=== PATIENT | female | born 1960 | race African-American/Black ===

== ENCOUNTER 2018-03-26 13:14 | Emergency (ER) | payer MEDICARE, MEDICAID ==
[~2018-03-26] VITALS: Ht 180.3 cm; Wt 107.0 kg
[~2018-03-26 13:14] MED LIST: AMLODIPINE BES2.5 MG ORAL; AMLODIPINE BESY10 MG ORAL; AMLODIPINE BESYL5 MG ORAL; AUGMENTIN 875-1 EAC1 ORAL; FLEXERIL10 MG PO; IBUPROFEN600 MG ORAL; IBUPROFEN800 M1 PO; NAPROSYN500 M1 PO; NORCO 10-325 T1 EACH PO; OMEGA 3-6-9 CO400 MG PO; PERCOCET 5-3251 EACH ORAL; VITAMIN D1000 UNI1 ORAL
[2018-03-26] MEDS ORDERED: Norco 5mg/325mg tab ORAL ONE (14:15)
--- NOTE | 2018-03-26 14:53 | Emergency Room Report ---
History of Present Illness General Chief Complaint: Upper Extremity Injury Source: Patient Present Illness HPI 57-year-old female presents emergency department complaining of localized pain in the right shoulder with exacerbation upon movement especially raising her right arm. Patient is right-hand dominant. Patient status post mechanical slip and fall this morning and she landed on her right shoulder. Patient denies pain in the elbow wrist and fingers or hand. Patient denies hitting her head she denies loss of consciousness denies midline neck or back pain. Denies numbness tingling or loss of sensation or gross motor movements of the extremities, incontinence of bowel or bladder. Denies CP, Palpitations, LOC, AMS , dizziness, Changes in Vision, weakness or a sudden severe headache. Allergies: Coded Allergies: CIPROFLOXACIN (Verified Allergy, Intermediate, Hives, 08/13/12) CIPROFLOXACIN HCL (Verified Allergy, Intermediate, Hives, 08/13/12) Patient History Past Medical History: see triage record Past Surgical History: none Pertinent Family History: none Last Menstrual Period: na Now: No Immunizations: UTD Reviewed Nursing Documentation: PMH: Agreed; PSxH: Agreed Nursing Documentation-PMH Past Medical History: No History, Except For Hx Hypertension: Yes Hx Cancer: No Hx Gastrointestinal Problems: No Hx Neurological Problems: No Review of Systems All Other Systems: negative except mentioned in HPI Physical Exam Vital Signs Date Time Temp Pulse Resp B/P (MAP) Pulse Ox O2 Delivery O2 Flow Rate FiO2 03/26/18 13:46 98.0 93 18 134/89 95 Room Air 98.1 Sp02 EP Interpretation: reviewed, normal General Appearance: no apparent distress, alert, GCS 15, non-toxic Head: normocephalic, atraumatic Eyes: bilateral eye normal inspection, bilateral eye PERRL ENT: hearing grossly normal, normal voice Neck: full range of motion Respiratory: lungs clear, normal breath sounds, speaking full sentences Cardiovascular #1: regular rate, rhythm, normal capillary refill Cardiovascular #2: 2+ radial (R), 2+ radial (L) Musculoskeletal: back normal, gait/station normal, normal range of motion, tender - ttp anteriorly and laterally to the right shoulder, pain with ROM above 50* point. no clicking, no obvious deformity, no step-off. Neurologic: alert, oriented x3, responsive, motor strength/tone normal, sensory intact, speech normal, grossly normal Psychiatric: judgement/insight normal Skin: normal color, no rash, warm/dry, well hydrated Lymphatic: no adenopathy Medical Decision Making PA Attestation Dr. Jimenez is my supervising Physician whom patient management has been discussed with. Diagnostic Impression: Primary Impression: Sprain of shoulder, right Qualified Codes: S43.401A - Unspecified sprain of right shoulder joint, initial encounter Additional Impressions: Shoulder pain, right Qualified Codes: M25.511 - Pain in right shoulder Rotator cuff injury Qualified Codes: S46.001A - Unspecified injury of muscle(s) and tendon(s) of the rotator cuff of right shoulder, initial encounter ER Course 57-year-old female presents emergency department complaining of localized pain in the right shoulder with exacerbation upon movement especially raising her right arm. Patient is right-hand dominant. Patient status post mechanical slip and fall this morning and she landed on her right shoulder. Patient denies pain in the elbow wrist and fingers or hand. Patient denies hitting her head she denies loss of consciousness denies midline neck or back pain. Denies numbness tingling or loss of sensation or gross motor movements of the extremities, incontinence of bowel or bladder. Denies CP, Palpitations, LOC, AMS , dizziness, Changes in Vision, weakness or a sudden severe headache. Ddx considered but are not limited to Fracture, dislocation, contusion, Sprain/ Strain/Spasm.. Vital signs: are WNL, pt. is afebrile H&PE are most consistent with musculoskeletal injury will perform imaging to r/ o fractures/dislocations. ORDERS: - X-ray right shoulder - negative for fx, Dislocation, or significant soft tissue injury, per preliminary read in ED, and signed by TIMMY Arredondo, my supervising physician has reviewed, and agrees with my interpretation. ED INTERVENTIONS: - [place] PO -- Right arm Sling applied by airdrop systems technician. Pt. remains neurovascularly intact. Cures report shows that this patient regularly receives [place] and just had refill yesterday.- She reports history of bilateral knee replacement. -I do not identify an emergent condition at this time. With current presentation , pt. is stable for close outpatient follow up and conservative treatment. D/ w pt. to return promptly to ED with worsening or new symptoms.- Pt. verbalizes understanding and agreement with proposed treatment plan.proposed treatment plan. DISCHARGE: At this time pt. is stable for d/c to home. Will provide printed patient care instructions, and any necessary prescriptions. Care plan and follow up instructions have been discussed with the patient prior to discharge. Other X-Ray Diagnostic Results Other X-Ray Diagnostic Results : X-Ray ordered: Right Shoulder # of Views/Limited Vs Complete: 3 View Indication: Pain EP Interpretation: Yes PA Xray: Interpretation reviewed, by supervising MD, and agrees with findings. Interpretation: no dislocation, no soft tissue swelling, no fractures Impression: No acute disease Electronically Signed by: Jennifer Arredondo PA-C Last Vital Signs Date Time Temp Pulse Resp B/P (MAP) Pulse Ox O2 Delivery O2 Flow Rate FiO2 03/26/18 13:46 98.0 93 18 134/89 95 Room Air 98.1 Status: improved Disposition: PLACE IN OBSERVATION Condition: Stable Scripts Ibuprofen* (MOTRIN*) 600 Mg Tablet 600 MG ORAL THREE TIMES A DAY, #30 TAB 0 Refills Prov: Jennifer Arredondo 03/26/18 Patient Instructions: Rotator Cuff Injury, Shoulder Sprain Additional Instructions: Take medications as directed. Continue to take previously rx'd pain medications as directed. Follow up with a Primary Care Provider in 3-5 days, even if your symptoms have resolved. Return sooner to ED if new symptoms occur, or current symptoms become worse. - Please note that this Emergency Department Report was dictated using [employer] technology software, occasionally this can lead to erroneous entry secondary to interpretation by the dictation equipment. Jennifer Arredondo Mar 26, 2018 14:52
[2018-03-26] MEDS ORDERED: IBUPROFEN600 MG ORAL (15:22)
--- NOTE | 2018-03-26 15:23 | Diagnostic Imaging Report ---
Indication: Shoulder pain Technique: 3 views of the left shoulder Comparison: None Findings: No acute fractures or dislocations. Joint spaces are preserved. Impression: Negative
[2018-03-26 15:35] VITALS: BP 134/89
[2018-03-26 16:41] VITALS: BP 134/89
== END 2018-03-26 17:00 | disposition home or self-care (01) ==
LOC: EMR 14:00
DX: S43.401A Unspecified sprain of right shoulder joint, initial encounter (principal); M25.511 Pain in right shoulder; S46.001A Unspecified injury of muscle(s) and tendon(s) of the rotator cuff of right shoulder, initial encounter; W01.0XXA Fall on same level from slipping, tripping and stumbling without subsequent striking against object, initial encounter; Y93.9 Activity, unspecified; Y92.9 Unspecified place or not applicable; Z88.8 Allergy status to other drugs, medicaments and biological substances; I10 Essential (primary) hypertension
CPT/HCPCS: 99285

== ENCOUNTER 2019-01-07 22:52 | Emergency (ER) | payer MEDICARE, MEDICAID ==
[~2019-01-07] VITALS: Ht 172.7 cm; Wt 81.6 kg
[2019-01-07 23:07] VITALS: BP 155/98
--- NOTE | 2019-01-07 23:17 | NUR ---
ED Nurse Note: Patient walked into ED c/o rigt face pain that started about 1 week ago, states that she ate ranch last week and has been experiencing pain ever since, denies any SOB, denies any vision changes. patient is alert and oriented x4, ambulatory with a steady gait, VSS
[2019-01-07] MEDS ORDERED: PREDNISONE20 MG ORAL (23:57)
[2019-01-07] MEDS ORDERED: IBUPROFEN600 MG ORAL (23:57)
[2019-01-07] MEDS ORDERED: DEBROX15 M1 RIGHT EAR (23:57)
[2019-01-08 00:05] VITALS: BP 148/82
--- NOTE | 2019-01-08 00:05 | NUR ---
ER DISCHARGE NOTE: Patient is cleared to be discharged per ERMD, pt is aox4, on room air, with stable vital signs. pt was given dc and prescription instructions, pt was able to verbalize understanding, pt id band removed without complications. pt is able to ambulate with steady gait. pt took all belongings.
--- NOTE | 2019-01-08 02:04 | Emergency Room Report ---
History of Present Illness General Chief Complaint: Headache Source: Patient Present Illness HPI 58-year-old female presents ED for evaluation. Patient complaining of right- sided facial pain and right-sided ear pain x3 days. States that she has a "sinus infection". Pain is dull, 6 out of 10, nonradiating. Denies cough. Denies fevers or chills. denies sick contacts or recent travel. No other aggravating or relieving factors. Denies any other associated symptoms Allergies: Coded Allergies: CIPROFLOXACIN (Verified Allergy, Intermediate, Hives, 08/13/12) CIPROFLOXACIN HCL (Verified Allergy, Intermediate, Hives, 08/13/12) Patient History Past Medical History: HTN Past Surgical History: none Pertinent Family History: none Social History: Denies: smoking, alcohol use, drug use Last Menstrual Period: n/a Now: No Immunizations: UTD Reviewed Nursing Documentation: PMH: Agreed; PSxH: Agreed Nursing Documentation-PMH Past Medical History: No History, Except For Hx Hypertension: Yes Hx Cancer: No Hx Gastrointestinal Problems: No Hx Neurological Problems: No Review of Systems All Other Systems: negative except mentioned in HPI Physical Exam Vital Signs Date Time Temp Pulse Resp B/P (MAP) Pulse Ox O2 Delivery O2 Flow Rate FiO2 01/07/19 23:05 98.2 73 18 155/98 (117) 100 Room Air Sp02 EP Interpretation: reviewed, normal General Appearance: no apparent distress, alert, GCS 15, non-toxic Head: normocephalic, atraumatic Eyes: bilateral eye normal inspection, bilateral eye PERRL ENT: hearing grossly normal, normal pharynx, no angioedema, normal voice, other - R TM cerumen impaction Neck: full range of motion, supple, no meningismus, supple/symm/no masses Respiratory: chest non-tender, lungs clear, normal breath sounds, speaking full sentences Cardiovascular #1: regular rate, rhythm, no edema Cardiovascular #2: 2+ carotid (R), 2+ carotid (L), 2+ radial (R), 2+ radial (L) , 2+ dorsalis pedis (R), 2+ dorsalis pedis (L) Gastrointestinal: normal bowel sounds, non tender, soft, non-distended, no guarding, no rebound Rectal: deferred Genitourinary: normal inspection, no CVA tenderness Musculoskeletal: back normal, gait/station normal, normal range of motion, non- tender Neurologic: alert, oriented x3, responsive, motor strength/tone normal, sensory intact, speech normal Psychiatric: judgement/insight normal, memory normal, mood/affect normal, no suicidal/homicidal ideation Reflexes: 3+ bicep (R), 3+ bicep (L), 3+ tricep (R), 3+ tricep (L), 3+ knee (R) , 3+ knee (L) Lymphatic: no adenopathy Medical Decision Making Diagnostic Impression: Primary Impression: Sinusitis, acute Qualified Codes: J01.10 - Acute frontal sinusitis, unspecified ER Course Hospital Course 58 yo F presents with R ear pain, sinus pain. Differential diagnoses include: URI, pharyngitis, otitis media, asthma Clinical course Patient placed on stretcher. After initial history, physical exam reveals a milddle aged female in no acute distress. R TM with cerumen impaction. No pharyngeal erythema. No tonsillar exudates. No lymphadenopathy. lungs clear. abdomen soft. Clinical findings consistent with sinusitits. Findings with patient. Afebrile. Likely viral. Will discharge with pain medications, prednisone, debrox. Safe for discharge for close outpatient follow-up. States she has a PMD Diagnosis - sinusitits Stable and discharged home with prescriptions for Prednisone, debrox. Instructed to followup with PMD. Return to ED if symptoms recur or worsen Last Vital Signs Date Time Temp Pulse Resp B/P (MAP) Pulse Ox O2 Delivery O2 Flow Rate FiO2 01/08/19 00:05 98.2 76 18 148/82 100 Room Air Status: improved Disposition: HOME, SELF-CARE Condition: Stable Scripts Ibuprofen* (MOTRIN*) 600 Mg Tablet 600 MG ORAL Q8H PRN for For Pain, #30 TAB 0 Refills Prov: Jus Herbert MD 01/07/19 Carbamide Peroxide (DEBROX) 15 Ml Drops 5 DROP RIGHT EAR TWICE A DAY for 4 Days, ML 0 Refills Prov: Jus Herbert MD 01/07/19 Prednisone* (PREDNISONE*) 20 Mg Tablet 40 MG ORAL DAILY, #10 TAB Prov: Jus Herbert MD 01/07/19 Referrals: [facility]. [facility] Patient Instructions: Sinus Headache Jus Herbert MD 16, 2019 02:04
== END 2019-01-08 00:06 | disposition home or self-care (01) ==
LOC: EMR 23:30
DX: J01.10 Acute frontal sinusitis, unspecified (principal); H61.21 Impacted cerumen, right ear; Z88.8 Allergy status to other drugs, medicaments and biological substances; I10 Essential (primary) hypertension
CPT/HCPCS: 99282

== ENCOUNTER 2020-03-20 22:11 | Emergency (ER) | payer MEDICARE, MEDICAID ==
[~2020-03-20] VITALS: Ht 180.3 cm; Wt 113.4 kg
[~2020-03-20 22:11] MED LIST changes: +DEBROX15 M1 RIGHT EAR; +PREDNISONE20 MG ORAL
[2020-03-20 22:15] VITALS: BP 169/81
--- NOTE | 2020-03-20 22:41 | Emergency Room Report ---
History of Present Illness General Chief Complaint: Headache Source: Patient Present Illness [facility] This a 59-year-old female with a history of hypertension. She presents with chief complaint of headache. This been ongoing for about a month. Pain is to the back of her head. Throbbing in nature. Worse when she take dairy product. No fever chills but no nausea no vomiting. Pain is 7 out of 10. No focal def icit. Has not anything for it. Nothing made it better. Dairy product made it worse. Allergies: Coded Allergies: CIPROFLOXACIN (Verified Allergy, Intermediate, Hives, 08/13/12) COVID-19 Screening Contact w/high risk pt: No Experienced COVID-19 symptoms?: No COVID-19 Testing performed LOADING MANAGER: No Patient History Past Medical History: see triage record, old chart reviewed Past Surgical History: none Pertinent Family History: none Social History: Denies: smoking Now: No Immunizations: other Reviewed Nursing Documentation: PMH: Agreed; PSxH: Agreed Nursing Documentation-PMH Hx Hypertension: Yes Hx Cancer: No Hx Gastrointestinal Problems: No Hx Neurological Problems: No Review of Systems Eye: Denies: eye pain, blurred vision ENT: Denies: ear pain, nose congestion, throat swelling Respiratory: Denies: cough, shortness of breath Cardiovascular: Denies: chest pain, palpitations Gastrointestinal: Denies: abdominal pain, diarrhea, nausea, vomiting Musculoskeletal: Denies: back pain, joint pain Skin: Denies: rash Neurological: Reports: headache; Denies: numbness Endocrine: Denies: increased thirst, increased urine Hematologic/Lymphatic: Denies: easy bruising All Other Systems: negative except mentioned in HPI Physical Exam Vital Signs Date Time Temp Pulse Resp B/P (MAP) Pulse Ox O2 Delivery O2 Flow Rate FiO2 03/20/20 22:15 98.4 92 16 169/81 (110) 97 Room Air Vitals with high blood pressure Sp02 EP Interpretation: reviewed, normal General Appearance: well appearing, no apparent distress, alert Head: normocephalic, atraumatic Eyes: bilateral eye PERRL, bilateral eye EOMI ENT: hearing grossly normal, normal pharynx Neck: full range of motion, supple, no meningismus Respiratory: chest non-tender, lungs clear, normal breath sounds Cardiovascular #1: regular rate, rhythm, no murmur Gastrointestinal: normal bowel sounds, non tender, no mass, no organomegaly, no bruit, non-distended Musculoskeletal: back normal, normal range of motion, gait/station normal Psychiatric: mood/affect normal Medical Decision Making Diagnostic Impression: Primary Impression: Headache Qualified Codes: G44.209 - Tension-type headache, unspecified, not intractable Additional Impression: Hypertension Qualified Codes: I10 - Essential (primary) hypertension ER Course Presents with headache. No evidence of bleed, meningitis, or neoplastic process. Suspect is secondary to her blood pressure being elevated. She is only taking her Norvasc regularly. She is taking Cozaar once in a while. She did take it today. She said her headache is better after she takes her Cozaar. CT/MRI/US Diagnostic Results CT/MRI/US Diagnostic Results : Imaging Test Ordered: CT head Impression Negative per radiologist Last Vital Signs Date Time Temp Pulse Resp B/P (MAP) Pulse Ox O2 Delivery O2 Flow Rate FiO2 03/20/20 22:15 98.4 92 16 169/81 (110) 97 Room Air Status: improved Disposition: HOME, SELF-CARE Condition: Stable Scripts Acetaminophen With Codeine (T#3) (TYLENOL #3 TAB*) Y Tab 1 TAB ORAL Q8H PRN for For Pain, #20 TAB Prov: Kelechi Wood MD 03/20/20 Referrals: NON PHYSICIAN (PCP) Patient Instructions: Tension Headache Additional Instructions: Take both of your blood pressure medication. Check your blood pressure at home regularly. Follow-up with your doctor in 7 days. Return if worse. Kelechi Wood MD Mar 20, 2020 22:41
[2020-03-20] MEDS ORDERED: ACETAMINOPHEN-1 EAC1 ORAL (23:28)
--- NOTE | 2020-03-20 23:47 | Diagnostic Imaging Report ---
EXAM: CT Head Without Intravenous Contrast CLINICAL HISTORY: PAIN TECHNIQUE: Axial computed tomography images of the head/brain without intravenous contrast. CTDI is 53.4 mGy and DLP is 998.2 mGy-cm. One or more of the following dose reduction techniques were used: automated exposure control, adjustment of the mA and/or kV according to patient size, use of iterative reconstruction technique. COMPARISON: No relevant prior studies available. FINDINGS: Brain: No hemorrhage or mass effect. Thick calcifications along the anterior falx. Nonspecific. Ventricles: No hydrocephalus. Bones/joints: Unremarkable. Soft tissues: Unremarkable. Sinuses: Unremarkable. Mastoid air cells: Clear. IMPRESSION: No acute hemorrhage, hydrocephalus, or mass effect.
[2020-03-20 23:52] VITALS: BP 169/81
== END 2020-03-20 23:52 | disposition home or self-care (01) ==
LOC: EMR 22:38
DX: G44.209 Tension-type headache, unspecified, not intractable (principal); I10 Essential (primary) hypertension; Z88.1 Allergy status to other antibiotic agents
CPT/HCPCS: 70450; 99284

== ENCOUNTER 2020-07-05 12:58 | Emergency (ER) | payer MEDICARE, MEDICAID ==
[~2020-07-05] VITALS: Ht 180.3 cm; Wt 111.1 kg
[~2020-07-05 12:58] MED LIST changes: +ACETAMINOPHEN-1 EAC1 ORAL
--- NOTE | 2020-07-05 13:00 | NUR ---
came to er complaints of left foot and ankle pain s/p fall denies any loc
[2020-07-05 13:15] VITALS: BP 157/90
--- NOTE | 2020-07-05 13:30 | NUR ---
x-rays completed pain meds given
[2020-07-05] MEDS ORDERED: HYDROcodone/Acetamin 5/325 tab ORAL ONE (13:45)
--- NOTE | 2020-07-05 14:31 | Diagnostic Imaging Report ---
FILM LEFT FOOT LEFT FOOT, 3 views INDICATION: Left foot pain COMPARISON: None FINDINGS: 3 views of the left foot are obtained. Bony structures are intact. Bone mineralization is within normal limits. Joint spaces are preserved. Soft tissues within normal limits. No radio-opaque foreign bodies. IMPRESSION: No acute fracture or subluxation identified.
--- NOTE | 2020-07-05 15:01 | Emergency Room Report ---
History of Present Illness General Chief Complaint: Lower Extremity Injury Source: Patient Present Illness HPI 59-year-old female presents to the emergency department complaining of 9 out of 10 severity pain is localized to the lateral aspect of the left foot since yesterday. Patient status post alleged mechanical trip and fall and describes rolling onto the left foot before falling down. Patient denies hitting her head or having loss of consciousness. She denies midline neck or back pain. Patient denies bruising she reports some swelling. She reports her pain is exacerbated upon weightbearing and walking. Patient denies previous injury to this extremity. She denies paresthesias. She denies saddle anesthesia or urinary incontinence/retention. She states she has been taking Tylenol with no relief. No other aggravating or relieving factors. Pmhx of high cholesterol. Allergies: Coded Allergies: CIPROFLOXACIN (Verified Allergy, Intermediate, Hives, 08/13/12) COVID-19 Screening Contact w/high risk pt: No Experienced COVID-19 symptoms?: No COVID-19 Testing performed PRINCIPAL CYBER ENGINEER: No Patient History Past Medical History: see triage record Past Surgical History: other - Right knee replacement Pertinent Family History: none Now: No Reviewed Nursing Documentation: PMH: Agreed; PSxH: Agreed Nursing Documentation-PMH Past Medical History: No History, Except For Hx Hypertension: Yes Hx Cancer: No Hx Gastrointestinal Problems: No Hx Neurological Problems: No Review of Systems All Other Systems: negative except mentioned in HPI Physical Exam Vital Signs Date Time Temp Pulse Resp B/P (MAP) Pulse Ox O2 Delivery O2 Flow Rate FiO2 07/05/20 13:15 97.9 87 16 157/90 (112) 98 Room Air Sp02 EP Interpretation: reviewed, normal General Appearance: no apparent distress, alert, GCS 15, non-toxic Head: normocephalic, atraumatic Eyes: bilateral eye normal inspection, bilateral eye PERRL ENT: hearing grossly normal, normal voice Neck: full range of motion Respiratory: chest non-tender, lungs clear, normal breath sounds, speaking full sentences Cardiovascular #1: regular rate, rhythm, no edema, normal capillary refill Cardiovascular #2: 2+ dorsalis pedis (L) Musculoskeletal: normal range of motion, tender - TTp to the lateral and plantar aspect of the left foot near proximal 5th metatarsal area. No heel TTP, NO ankle joint Neurologic: alert, motor strength/tone normal, oriented x3, sensory intact, responsive, speech normal, normal gait - compensatory favoring the left foot. Psychiatric: judgement/insight normal Skin: no rash, normal color Medical Decision Making PA Attestation Dr. Contreras is my supervising Physician whom patient management has been discussed with. Diagnostic Impression: Primary Impression: Sprain of left foot Qualified Codes: S93.602A - Unspecified sprain of left foot, initial encounter Additional Impression: Suspected avulsion fracture on imaging. ER Course 59-year-old female presents to the emergency department complaining of 9 out of 10 severity pain is localized to the lateral aspect of the left foot since yesterday. Patient status post alleged mechanical trip and fall and describes rolling onto the left foot before falling down. Patient denies hitting her head or having loss of consciousness. She denies midline neck or back pain. Patient denies bruising she reports some swelling. She reports her pain is exacerbated upon weightbearing and walking. Patient denies previous injury to this extremity. She denies paresthesias. She denies saddle anesthesia or urinary incontinence/retention. She states she has been taking Tylenol with no relief. No other aggravating or relieving factors. Pmhx of high cholesterol. Ddx considered but are not limited to Fracture, dislocation, contusion, Sprain/Strain/Spasm, avulsion fx just name a few. Vital signs: are WNL, pt. is afebrile H&PE are most consistent with musculoskeletal injury will perform imaging to r/o fractures/dislocations. ORDERS: - X-ray Left foot 3 views -questionable avulsion fracture of the cuboid. ED INTERVENTIONS: - [place] PO -Left walking shoe/ splint applied by myself. Pt. remains neurovascularly intact. -Patient is provided with crutches and instructed on their use DISCHARGE: At this time pt. is stable for d/c to home. Will provide printed patient care instructions, and any necessary prescriptions. Care plan and follow up instructions have been discussed with the patient prior to discharge. Other X-Ray Diagnostic Results Other X-Ray Diagnostic Results : X-Ray ordered: Left foot # of Views/Limited Vs Complete: 3 View Indication: Pain EP Interpretation: Yes PA Xray: Interpretation reviewed, by supervising MD, and agrees with findings. Interpretation: no dislocation, no soft tissue swelling, other - que stionable small avulsion fx of the cuboid Impression: Other Electronically Signed by: Jennifer Arredondo PA-C Last Vital Signs Date Time Temp Pulse Resp B/P (MAP) Pulse Ox O2 Delivery O2 Flow Rate FiO2 07/05/20 13:15 97.9 87 16 157/90 (112) 98 Room Air Disposition: HOME, SELF-CARE Condition: Stable Scripts Hydrocodone Bit/Acetaminophen (HYDROCODON-ACETAMINOPHEN 5-300) 1 Each Tablet 1 EACH PO Q8HR for Severe pain greater than 7/10, #12 TAB Prov: Jennifer Arredondo 07/05/20 Ibuprofen* (MOTRIN*) 600 Mg Tablet 600 MG ORAL THREE TIMES A DAY, #20 TAB Prov: Jennifer Arredondo 07/05/20 Referrals: NON PHYSICIAN (PCP) Orthopedic Urgent Care Patient Instructions: Avulsion Fracture of the Foot, Foot Sprain Additional Instructions: Take medications as directed. Do not drink alcohol, drive, or operate heavy machinery while taking [place] as this may cause drowsiness. Follow up with an DRIVING TEACHER in 3-5 days, even if your symptoms have resolved. If symptoms persist MRI may be required at the discretion of your PCP or Ortho Specialist. --Please review list of primary care clinics, if you do not already have a primary care provider who can give you an Orthopedic Referral. Return sooner to ED if new symptoms occur, or current symptoms become worse. - Please note that this Emergency Department Report was dictated using [employer] Therapeuticsprogram director/air personality technology software, occasionally this can lead to erroneous entry secondary to interpretation by the dictation equipment. Jennifer Arredondo Jul 05, 2020 15:01
[2020-07-05] MEDS ORDERED: IBUPROFEN600 M1 ORAL (15:02)
[2020-07-05] MEDS ORDERED: HYDROCODON-ACE1 EA18 PO (15:02)
--- NOTE | 2020-07-05 15:26 | NUR ---
discharged home with instruction and rx crutches provided instructed how to use the crutches post op shoe applied to left foot
== END 2020-07-05 15:27 | disposition home or self-care (01) ==
LOC: EMR 13:33
DX: S93.602A Unspecified sprain of left foot, initial encounter (principal); W01.0XXA Fall on same level from slipping, tripping and stumbling without subsequent striking against object, initial encounter; Y92.9 Unspecified place or not applicable; I10 Essential (primary) hypertension; Z88.1 Allergy status to other antibiotic agents; Z96.651 Presence of right artificial knee joint
CPT/HCPCS: 99283

== ENCOUNTER 2020-07-23 11:11 | Emergency (ER) | payer MEDICARE, MEDICAID ==
[~2020-07-23] VITALS: Ht 180.3 cm; Wt 106.6 kg
[~2020-07-23 11:11] MED LIST changes: +HYDROCODON-ACE1 EA18 PO; +IBUPROFEN600 M1 ORAL
[2020-07-23 11:50] VITALS: BP 150/89
[2020-07-23] MEDS ORDERED: LIDODERM700 M1 TOPIC (11:52)
[2020-07-23 11:55] VITALS: BP 150/89
--- NOTE | 2020-07-23 11:56 | Emergency Room Report ---
History of Present Illness General Chief Complaint: Allergies Source: Patient Present Illness HPI Disclaimer: Please note that this report is being documented using [employer] technology. This can lead to erroneous entry secondary to incorrect interpretation by the dictating instrument. HPI: 59-year-old female presents for evaluation of back pain. Patient states she has a knot in the center right portion of the back next to her right scapula. Cannot remember specific injury. Discomfort is intermittent. Worse by moving the right upper extremity. Denies pain in the chest, shortness of breath, cough, congestion, tearing sensation, lightheadedness, palpitations. Denies headache or vision changes. States she is lactose intolerant accidentally a dairy last week causing her to have an acute episode of allergic sinusitis. Has been treating herself with Sudafed and Mucinex with good effect. Wanted to get checked out as she states she developed bronchitis typically after a sinusitis. Denies fever or chills. Denies sore throat or throat sw elling. No other symptoms at this time. PMH: Hypertension, allergies PSH: Reviewed Allergies: Ciprofloxacin Social Hx: Reviewed Allergies: Coded Allergies: CIPROFLOXACIN (Verified Allergy, Intermediate, Hives, 08/13/12) COVID-19 Screening Contact w/high risk pt: No Experienced COVID-19 symptoms?: No COVID-19 Testing performed MONITOR TECH: No Patient History Now: No Nursing Documentation-PMH Past Medical History: No History, Except For Hx Hypertension: Yes Hx Cancer: No Hx Gastrointestinal Problems: No Hx Neurological Problems: No Review of Systems All Other Systems: negative except mentioned in HPI Physical Exam Vital Signs Date Time Temp Pulse Resp B/P (MAP) Pulse Ox O2 Delivery O2 Flow Rate FiO2 07/23/20 11:25 97.7 98 18 158/97 (117) 97 Room Air General: Awake and alert, no acute distress HEENT: NC/AT. EOMI. no maxillary sinus pressure. No frontal sinus pressure. Nasal turbines nonedematous. No pharyngeal edema erythema. Uvula midline. Cardiovascular: RRR. S1 and S2 normal. No murmur appreciated Resp: Normal work of breathing. No cough, wheezing or crackles appreciated Skin: Intact. No abrasions, laceration or rash over the exposed skin MSK: Normal tone and bulk. Moving all extremities. No obvious deformity. Neuro: Awake and alert. Mentating appropriately. Back: Point tenderness in the paraspinal region on the right side next to the right scapula. No midline tenderness in the spine over the cervical, thoracic or lumbosacral region. Firm knot palpable. Mobile Medical Decision Making Diagnostic Impression: Primary Impression: Back spasm ER Course 59-year-old female presents for evaluation of neck pain nasal congestion. Nasal congestion appears to be resolved after self-medicating with OTC medications. No other evidence of acute bronchitis or other illness. Her back pain is consistent with a paraspinal spasm will treat with lidocaine patches and heat therapy. Discussed retching exercises. Patient stable for outpatient follow-up does not require emergent labs or imaging at this time. Instructed to return with new or worsening symptoms. She understands and agrees with the treatment plan. Last Vital Signs Date Time Temp Pulse Resp B/P (MAP) Pulse Ox O2 Delivery O2 Flow Rate FiO2 07/23/20 11:25 97.7 98 18 158/97 (117) 97 Room Air Disposition: HOME, SELF-CARE Condition: Stable Scripts Lidocaine Patch* (Lidoderm Patch*) 1 Each Adh..patch 1 PATCH TOPIC DAILY, #14 PATCH 0 Refills Patch(es) may remain in place for up to 12 hours in any 24-hour period. Prov: Yuri Clark MD 07/23/20 Patient Instructions: Heat Therapy, Allergies Additional Instructions: Please follow-up with your primary care doctor in the next 1 to 3 days to discuss this emergency department visit and for reevaluation. If you have any new or worsening symptoms please return to the emergency department for reevaluation. Please note that this report is being documented using [employer] technology. This can lead to erroneous entry secondary to incorrect interpretation by the dictating instrument. Yuri Clark MD Jul 23, 2020 11:56
== END 2020-07-23 11:58 | disposition home or self-care (01) ==
LOC: EMR 11:39
DX: M62.830 Muscle spasm of back (principal); I10 Essential (primary) hypertension; Z88.1 Allergy status to other antibiotic agents; Z91.011 Allergy to milk products
CPT/HCPCS: 99282